=== PATIENT | male | born 1965 | race Caucasian/White ===

== ENCOUNTER 2019-02-15 11:15 | Outpatient (REF) | payer BC, SELFPAY ==
[2019-02-15 22:31] LABS: Cholesterol 237 mg/dL (50-200); HDL Cholesterol 58 mg/dL (40-60); LDL CHOLESTEROL 150 mg/dL (<100); Triglyceride 115 mg/dL (30-150)
== END 2019-02-15 11:35 ==
LOC: NCHCN 11:15
PROVIDERS: PCP Family Medicine; Visit Provider Internal Medicine
DX: Z13.220 Encounter for screening for lipoid disorders (principal); Z12.5 Encounter for screening for malignant neoplasm of prostate
CPT/HCPCS: 80061; 83721; 84154

== ENCOUNTER 2020-01-11 18:40 | Outpatient (REF) | payer BC, SELFPAY | END 2020-01-11 19:00 | LOC: NCHCN 18:40 | PROVIDERS: PCP Family Medicine; Visit Provider Physician Assistant | DX: R06.02 Shortness of breath (principal) ==

== ENCOUNTER 2020-01-12 15:34 | Outpatient (CLI) | payer BC, SELFPAY ==
[2020-01-13 14:16] LABS: COVID-19 RT-PCR Result Negative (Negative)
== END 2020-01-12 15:54 ==
PROVIDERS: PCP Family Medicine; Visit Provider Physician Assistant
DX: R06.02 Shortness of breath (principal)
CPT/HCPCS: U0003

== ENCOUNTER 2020-01-24 14:56 | Outpatient (REF) | payer BC, SELFPAY ==
[2020-01-24 20:49] LABS: Abs Immature Grans 0.02 k/cumm (0.0-0.09); Absolute Basophil Count 0.05 k/cumm (0.0-0.2); Absolute Eosinophil Count 0.16 k/cumm (0.0-0.7); Absolute Lymphocyte Count 2.38 k/cumm (1.2-3.4); Absolute Monocyte Count 0.63 k/cumm (0.11-0.7); Absolute Neutrophil Count 4.61 k/cumm (1.2-6.7); Basophils % 0.6; HCT 45.4 % (40.0-50.0); HGB 15.4 g/dL (13.5-17.5); Immature Grans % 0.3 %; Lymphocytes % 30.3; Mean Corp. HGB Concentration 33.9 g/dL (32.0-36.0); Mean Corpuscular Hemoglobin 30.7 pg (27.0-33.0); Mean Corpuscular Volume 90.6 fL (80-95); Mean Platelet Volume 9.2 fL (8.0-11.0); Neutrophils % 58.8; Platelet Count 381 x1000/uL (130-400); RBC 5.01 m/cumm (4.50-6.00); RBC Distribution Width 13.4 % (11.8-14.1); White Blood Cell Count 7.85 k/cumm (4.4-10.8)
[2020-01-24 21:15] LABS: ALT 84 U/L (16-63); AST 38 U/L (15-37); Albumin 4.6 g/dL (3.4-5.0); Alkaline Phosphatase 57 U/L (46-116); Anion Gap 7.8 mmol/L (3-11); BUN 20 mg/dL (7-18); Bilirubin, Total 0.6 mg/dL (0.2-1.0); CO2 28.2 mmol/L (21.0-32.0); CREATININE 1.08 mg/dL (0.70-1.30); Calcium 9.6 mg/dL (8.5-10.1); Chloride 101 mmol/L (98-107); Glucose 98 mg/dL (74-106); Potassium 4.7 mmol/L (3.5-5.1); Sodium 137 mmol/L (136-145); Total Protein 8.1 g/dL (6.4-8.2)
== END 2020-01-24 15:16 ==
LOC: NCHCN 14:56
PROVIDERS: PCP Family Medicine; Visit Provider Internal Medicine
DX: R06.02 Shortness of breath (principal); R05 Cough
CPT/HCPCS: 80053; 85025

== ENCOUNTER 2020-03-27 11:59 | Outpatient (REF) | payer BC, SELFPAY ==
[2020-03-27 22:20] LABS: Hemoglobin A1C 4.8 % (3.8-5.6)
[2020-03-27 22:29] LABS: ALT 44 U/L (16-63); AST 30 U/L (15-37); Albumin 4.3 g/dL (3.4-5.0); Alkaline Phosphatase 53 U/L (46-116); Bilirubin, Direct 0.15 mg/dL (0.00-0.20); Bilirubin, Total 0.8 mg/dL (0.2-1.0); Calculated LDL 124 mg/dL (<100); Cholesterol 195 mg/dL (<200); HDL Cholesterol 52 mg/dL (40-60); Total Protein 7.3 g/dL (6.4-8.2); Triglyceride 97 mg/dL (<150)
[2020-03-29 11:15] LABS: HBs Antibody, Quant 42.6 mIU/mL (See Note); Hepatitis B Surface Ab Positive (See Note); Hepatitis B Surface Ag Negative (Negative)
[2020-03-29 11:51] LABS: Hepatitis C Ab w Rflx HCV PCR Negative (Negative)
== END 2020-03-27 12:19 ==
LOC: NCHCN 11:59
PROVIDERS: PCP Family Medicine; Visit Provider Internal Medicine
DX: E66.9 Obesity, unspecified (principal); Z11.59 Encounter for screening for other viral diseases; R79.89 Other specified abnormal findings of blood chemistry
CPT/HCPCS: 80061; 80076; 86706; 86803; 87340; 83036